=== PATIENT | female | born 1980 | race Caucasian/White ===

== ENCOUNTER 2018-05-17 12:05 | Emergency (ER) | payer OTHER ==
[2018-05-17 14:02] VITALS: BP 116/77
--- NOTE | 2018-05-17 14:05 | UC ---
Dental HPI - HPI Summary HPI Summary: small lump on right upper gum first notice 4 days ago--she has a dental appointment for 05/20/18-has been managing pain of with Ibuprofen. however awoke this morning with facial and right upper gum swelling - History of Current Complaint Chief Complaint: UCDentalProblem Stated Complaint: DENTAL COMP Time Seen by Provider: 05/17/18 13:58 Hx Obtained From: Patient Hx Last Menstrual Period: pt on depo provera and does not have regular menses ?: No Onset/Duration: Sudden Onset, Lasting Days, Worse Since - this morning Severity: Moderate Alleviating Factor(s): OTC Meds Related History: Previous Dental Care on Same Tooth, Swelling - Allergies/Home Medications Allergies/Adverse Reactions: Allergies Allergy/AdvReac Type Severity Reaction Status Date / Time No Known Allergies Allergy Verified 01/30/14 14:31 Home Medications: Home Medications Ibuprofen 200 mg PO DAILY 05/17/18 [History Confirmed 05/17/18] PMH/Surg Hx/FS Hx/Imm Hx Previously Healthy: Yes - Surgical History Surgical History: None - Family History Known Family History: Positive: None - Social History Occupation: Works From/At Home Lives: With Family Alcohol Use: Rare Substance Use Type: None Review of Systems Constitutional: Negative Skin: Negative Eyes: Negative ENT: Dental Pain - right upper gum swelling Respiratory: Negative Cardiovascular: Negative Gastrointestinal: Negative Genitourinary: Negative Motor: Negative Neurovascular: Negative Musculoskeletal: Negative Neurological: Negative Psychological: Negative Is Patient Immunocompromised?: No All Other Systems Reviewed And Are Negative: Yes Physical Exam Triage Information Reviewed: Yes Appearance: Well-Appearing, No Pain Distress, Well-Nourished Vital Signs Reviewed: Yes Eye Exam: Normal Eyes: Positive: Conjunctiva Clear ENT Exam: Normal ENT: Positive: Normal ENT inspection, Hearing grossly normal, Pharynx normal, TMs normal, Dental tenderness, Uvula midline. Negative: Nasal congestion, Trismus, Muffled voice, Hoarse voice, Sinus tenderness Dental Exam: Other Dental: Positive: Abscess @ - right upper gum Neck exam: Normal Neck: Positive: Supple, Nontender Respiratory Exam: Normal Respiratory: Positive: Chest non-tender, No respiratory distress, No accessory muscle use Cardiovascular Exam: Normal Cardiovascular: Positive: RRR, Pulses Normal, Brisk Capillary Refill Musculoskeletal Exam: Normal Musculoskeletal: Positive: Strength Intact, ROM Intact, No Edema Neurological Exam: Normal Neurological: Positive: Alert, Muscle Tone Normal Psychological Exam: Normal Skin Exam: Normal Dental Complaint Course/Dx - Course Course Of Treatment: amoxicillin, ibuprofen warm compress and salt water rinse follow with dentist as planned - Differential Dx/Diagnosis Provider Diagnoses: right upper gum abscess Discharge - Sign-Out/Discharge Documenting (check all that apply): Discharge/Admit/Transfer - Discharge Plan Condition: Stable Disposition: HOME Prescriptions: Amoxicillin PO (*) [Amoxicillin 500 MG CAP*] 500 mg PO TID #30 cap Patient Education Materials: Ibuprofen (By mouth), Dental Abscess (ED), Warm Compress or Soak (ED) Referrals: Afua Stevens MD [Primary Care Provider] - Additional Instructions: follow with dentist on FridayMay 20 as planned - Billing Disposition and Condition Condition: STABLE Disposition: Home
== END 2018-05-17 14:12 | disposition home or self-care (01) ==
LOC: UCCORT 12:05
DX: K05.219 Aggressive periodontitis, localized, unspecified severity (principal)
CPT/HCPCS: 99202; G0463